=== PATIENT | female | born 1995 | race Caucasian/White ===

== ENCOUNTER 2024-03-29 09:30 | Observation (INO) ==
[2024-03-29] MEDS: NOZIN NASAL SANITIZER TP ONE (07:40)
[2024-03-29] MEDS: LR 1,000 ML IV 1,000 ML IV ONE (07:45)
[2024-03-29 08:27] VITALS: BMI 51.7
[2024-03-29] MEDS: NS 100 ML IV 100 ML ONE (09:47)
[2024-03-29] MEDS: ANCEF VIAL 1 GRAM ONE (09:47)
[2024-03-29] MEDS: ZOFRAN INJ 4 MG VIAL ONE (09:51)
[2024-03-29] MEDS: OFIRMEV IV 1000 MG VIAL 1,000 MG/100 ML VIAL IV ONE (09:51)
[2024-03-29] MEDS: VERSED ONE (09:51)
[2024-03-29] MEDS: DIPRIVAN VIAL 20 ML ONE (09:51)
[2024-03-29] MEDS: FENTANYL VIAL INJ 100 mcg ONE (09:51)
[2024-03-29] MEDS: DECADRON INJ ONE (09:51)
[2024-03-29] MEDS ORDERED: KETAMINE HCL ONE (09:51)
[2024-03-29] MEDS: PEPCID 20 MG VIAL ONE (09:51)
[2024-03-29] MEDS ORDERED: XYLOCAINE 2 % (PLAIN) ONE (09:51)
[2024-03-29] MEDS ORDERED: ULTANE GAS IN ONE (09:51)
[2024-03-29] MEDS: REGLAN INJ 10 MG VIAL ONE (09:57)
[2024-03-29] MEDS: TORADOL 30 MG VIAL ONE (09:57)
[2024-03-29] MEDS: MARCAINE 0.25% INJ ONE (10:17)
[2024-03-29] MEDS: EPHEDRINE SULFATE INJ ONE (10:43)
[2024-03-29] MEDS: NEO-SYNEPHRINE INJ ONE (10:51)
[2024-03-29] MEDS: VANCOMYCIN HCL ONE (11:00)
[2024-03-29] MEDS: TOBRAMYCIN SULFATE ONE (11:00)
[2024-03-29] MEDS: DILAUDID INJ ONE (11:12)
[2024-03-29] MEDS ORDERED: DILAUDID INJ IVP PRN (11:22)
[2024-03-29] MEDS ORDERED: BARHEMSYS INJ IVP PRN (11:22)
[2024-03-29] MEDS ORDERED: BENADRYL INJ 50 MG VIAL IVP PRN (11:22)
[2024-03-29] MEDS ORDERED: TYLENOL 325 MG TAB PO PRN (12:19)
[2024-03-29] MEDS ORDERED: ZOFRAN INJ 4 MG VIAL ONE (12:44)
[2024-03-29] MEDS: ZOFRAN INJ 4 MG VIAL IVP PRN ×3 (12:47→22:10)
[2024-03-29] MEDS ORDERED: NS IRRIGATION* 500 ML IR ONE (13:22)
[2024-03-29] MEDS: PERCOCET TAB 5/325 MG PO PRN (14:24)
[2024-03-29] MEDS: NS 1,000 ML IV 1,000 ML IV SCH (15:02)
[2024-03-29] MEDS: COLACE CAP 100 MG PO SCH (21:52)
[2024-03-30] MEDS: DILAUDID INJ IVP PRN (00:17)
[2024-03-30 05:08] LABS: BLOOD UREA NITROGEN 11 mg/dL (7-18); CALCIUM 8.3 mg/dL (8.5-10.1); CARBON DIOXIDE 26.8 mmol/L (21-32); CHLORIDE 98 mmol/L (98-107); COR NA(FOR HYPERGLY) 134 mmol/L (136-145); CREATININE 0.97 mg/dL (0.55-1.02); GLUCOSE 118 mg/dL (65-99); POTASSIUM 3.6 mmol/L (3.5-5.1); SODIUM 134 mmol/L (136-145); eGFR NON BLACK RACES > 60 (>60)
[2024-03-30] MEDS ORDERED: CONSULT PHARMACY - POTASSIUM & MAGNESIUM XX SCH (07:00)
[2024-03-30] MEDS: LOVENOX INJ 40 MG SYR SC SCH (08:28)
[2024-03-30] MEDS: K-DUR TAB 20 MEQ PO SCH (08:29)
[2024-03-30 10:40] VITALS: RESP 21
[2024-03-30 11:27] VITALS: BP 115/56; PULSE 99; TEMP 97.8; O2SAT 100
--- NOTE | 2024-03-30 13:16 | NOTE.SOAP ---
Soap Note Note for Day of Date of Exam: 03/30/24 Subjective Data Subjective Data: Patient resting in bed, states pain well controlled. Objective Data Objective Data: Right Lower Extremity Exam: External fixator in place. CFT WNL to all digits. Surgical incision has sutures intact with no drainage or dehiscence. No signs or symptoms concerning for DVT, PE, or Compartment Syndrome. Assessment Assessment: 28 year old Female POD#1 talectomy, external fixator application with charcot right foot Plan Plan: - PWB to RLE with assistance device. - We will follow cultures and pathology report. - She is good for discharge from our standpoint. - Keep dressing clean and dry and intact.
--- NOTE | 2024-03-31 12:43 | W.DIS.FURT ---
Summary of Discharge Discharge Summary of Date Date of Exam: 03/30/24 Admission Date Date of Admission: 03/29/24 Admission Diagnosis Hospital Course: Pt is a 28 year old Female POD#1 talectomy, external fixator application with charcot right foot with External fixator in place. She is doing well this morning. She is cleared by podiatry to be discharged today. PWB to RLE with assistance device. She will follow with podiatry outpatient that will include cultures and pathology report. Keep dressing clean and dry and intact. Pt discharged in stable condition. Vital Signs: Vital Signs (72 hours) 03/29/24 07:38 03/29/24 09:57 03/29/24 11:12 Temperature 97.8 F Pulse Rate 111 H Pulse Rate [Brachial] Respiratory Rate 18 20 20 Blood Pressure 116/65 Blood Pressure [Left Arm] O2 Sat by Pulse Oximetry 99 Oxygen Delivery Method Room Air Oxygen Flow Rate FIO2% 03/29/24 12:21 03/29/24 12:36 03/29/24 12:41 Temperature 97 F L Pulse Rate 114 H 103 H 101 H Pulse Rate [Brachial] Respiratory Rate 16 17 18 Blood Pressure 96/55 103/51 105/53 Blood Pressure [Left Arm] O2 Sat by Pulse Oximetry 96 95 98 Oxygen Delivery Method Aerosol Face Tent Room Air Nasal Cannula Oxygen Flow Rate FIO2% 03/29/24 12:26 03/29/24 12:31 03/29/24 12:46 Temperature Pulse Rate 109 H 107 H 110 H Pulse Rate [Brachial] Respiratory Rate 16 16 18 Blood Pressure 94/50 114/53 98/47 Blood Pressure [Left Arm] O2 Sat by Pulse Oximetry 97 95 97 Oxygen Delivery Method Aerosol Face Tent Room Air Nasal Cannula Oxygen Flow Rate FIO2% 03/29/24 12:51 03/29/24 12:56 03/29/24 13:01 Temperature Pulse Rate 101 H 98 H 96 H Pulse Rate [Brachial] Respiratory Rate 18 18 18 Blood Pressure 101/51 103/55 109/54 Blood Pressure [Left Arm] O2 Sat by Pulse Oximetry 97 97 98 Oxygen Delivery Method Nasal Cannula Nasal Cannula Nasal Cannula Oxygen Flow Rate FIO2% 03/29/24 14:24 03/29/24 16:30 03/29/24 15:24 Temperature Pulse Rate Pulse Rate [Brachial] Respiratory Rate 18 18 Blood Pressure Blood Pressure [Left Arm] O2 Sat by Pulse Oximetry Oxygen Delivery Method Nasal Cannula Oxygen Flow Rate 3 FIO2% 32 03/29/24 16:00 03/29/24 13:17 03/29/24 13:31 Temperature 97.8 F 86.1 F L 86.5 F L Pulse Rate Pulse Rate [Brachial] 104 H 100 H 105 H Respiratory Rate 18 20 20 Blood Pressure Blood Pressure [Left Arm] 100/52 101/58 99/47 O2 Sat by Pulse Oximetry 100 99 98 Oxygen Delivery Method Oxygen Flow Rate FIO2% 03/29/24 13:52 03/29/24 14:11 03/29/24 14:16 Temperature 97.4 F L 97.8 F Pulse Rate Pulse Rate [Brachial] 94 H 87 88 Respiratory Rate 18 20 18 Blood Pressure Blood Pressure [Left Arm] 111/67 110/64 112/62 O2 Sat by Pulse Oximetry 99 99 Oxygen Delivery Method Oxygen Flow Rate FIO2% 03/29/24 15:16 03/29/24 16:16 03/29/24 17:16 Temperature 96.4 F L 98.6 F 98.8 F Pulse Rate Pulse Rate [Brachial] 87 95 H 100 H Respiratory Rate 18 19 18 Blood Pressure Blood Pressure [Left Arm] 106/51 104/58 105/64 O2 Sat by Pulse Oximetry 100 100 100 Oxygen Delivery Method Oxygen Flow Rate FIO2% 03/29/24 18:16 03/29/24 20:00 03/29/24 21:53 Temperature 97.8 F 97.0 F L Pulse Rate Pulse Rate [Brachial] 104 H 101 H Respiratory Rate 18 20 20 Blood Pressure Blood Pressure [Left Arm] 100/52 105/53 O2 Sat by Pulse Oximetry 100 100 Oxygen Delivery Method Oxygen Flow Rate FIO2% 03/30/24 00:17 03/29/24 19:00 03/29/24 22:53 Temperature Pulse Rate Pulse Rate [Brachial] Respiratory Rate 21 18 Blood Pressure Blood Pressure [Left Arm] O2 Sat by Pulse Oximetry Oxygen Delivery Method Room Air Oxygen Flow Rate FIO2% 03/30/24 00:00 03/30/24 00:47 03/30/24 04:00 Temperature 97.6 F 97.9 F Pulse Rate Pulse Rate [Brachial] 98 H 97 H Respiratory Rate 20 18 20 Blood Pressure Blood Pressure [Left Arm] 116/63 115/59 O2 Sat by Pulse Oximetry 99 99 Oxygen Delivery Method Oxygen Flow Rate FIO2% 03/29/24 20:05 03/30/24 08:28 03/30/24 08:00 Temperature 98.0 F Pulse Rate Pulse Rate [Brachial] 82 Respiratory Rate 20 21 Blood Pressure Blood Pressure [Left Arm] 117/56 O2 Sat by Pulse Oximetry 97 Oxygen Delivery Method Room Air Room Air Oxygen Flow Rate FIO2% 03/30/24 08:37 03/30/24 07:00 03/30/24 09:28 Temperature Pulse Rate Pulse Rate [Brachial] Respiratory Rate 21 Blood Pressure Blood Pressure [Left Arm] O2 Sat by Pulse Oximetry Oxygen Delivery Method Room Air Room Air Oxygen Flow Rate FIO2% Labs: Laboratory Last Values Sodium 134 mmol/L (136-145) L 03/30/24 04:37 Corrected Sodium 134 mmol/L (136-145) L 03/30/24 04:37 Potassium 3.6 mmol/L (3.5-5.1) 03/30/24 04:37 Chloride 98 mmol/L (98-107) 03/30/24 04:37 Carbon Dioxide 26.8 mmol/L (21-32) 03/30/24 04:37 BUN 11 mg/dL (7-18) 03/30/24 04:37 Creatinine 0.97 mg/dL (0.55-1.02) 03/30/24 04:37 Est GFR (MDRD) Af Amer > 60 (>60) 03/30/24 04:37 Est GFR (MDRD) Non-Af > 60 (>60) 03/30/24 04:37 Glucose 118 mg/dL (65-99) H 03/30/24 04:37 Calcium 8.3 mg/dL (8.5-10.1) L 03/30/24 04:37 Reason For Visit: +APPLICATION OF EXTERNAL FIXATOR (R), TALECTOMY Discharge Date Discharge Date: 03/30/24 Discharge Diagnosis Plan of Treatment: Continue with present treatment and follow up plan. Pt is to keep follow up appointment as instructed and take medications as ordered. Discharge Medications Discharge Medications: No Known Drug Allergies Allergy (Verified 03/29/24 08:01) CONTINUE taking the following medications celecoxib 200 mg capsule 200 mg PO BID PRN pain 03/29/24 [History] lisinopril 20 mg-hydrochlorothiazide 12.5 mg tablet 1 tab PO QDAY blood pressure 03/29/24 [History] phentermine 37.5 mg tablet 37.5 mg PO QAM 03/29/24 [History] Discharge Plan Discharge Plan Hospital Course: Pt is a 28 year old Female POD#1 talectomy, external fixator application with charcot right foot with External fixator in place. She is doing well this morning. She is cleared by podiatry to be discharged today. PWB to E with assistance device. She will follow with podiatry outpatient that will include cultures and pathology report. Keep dressing clean and dry and intact. Pt discharged in stable condition. Patient Disposition: 01 HOME, SELF-CARE Condition: Stable Health Concerns: Post Hospitalization: new medications and changes needed to prevent readmission or further decline. Pt educated and given instructions on all concerns. Plan of Treatment: Continue with present treatment and follow up plan. Pt is to keep follow up appointment as instructed and take medications as ordered. Prescriptions: New oxycodone-acetaminophen [Percocet] 10-325 mg Tablet 1 tab PO Q4H MDD 3 PRNQty: 36 0RF Rx Instructions: PAIN enoxaparin [Lovenox] 40 mg/0.4 mL Syringe 40 mg SUBCUT QDAY Qty: 30 0RF ondansetron HCl 8 mg Tablet 8 mg PO Q4H PRNQty: 21 0RF No Action celecoxib 200 mg capsule 200 mg PO BID PRN (Reason: pain) lisinopril-hydrochlorothiazide 20-12.5 mg tablet 1 tab PO QDAY phentermine 37.5 mg tablet 37.5 mg PO QAM Orders to Discharge Patient Discharge Orders: Discharge (Routine); Ordered 03/30/24 Ordered By: Guru White Follow ups/Referrals Follow ups/Referrals: Ethan Spear [CONSULTING PHYSICIAN] - 1 WEEK (CALL AND MAKE FLU/[phone]) ,Misc [Primary Care Provider] - 1 WEEK Instructions Instructions: Fracture Treated With External Fixation, Pediatric Stand Alone Forms: Excuse From Work or School, Post Hospital Follow Up Care
== END 2024-03-30 12:40 | disposition home or self-care (01) ==
LOC: MED/SURG → EDUNIT# 09:30
PROVIDERS: ADMIT Obstetrics & Gynecology Obstetrics; ATTEND Obstetrics & Gynecology Obstetrics
PROC: APEXFIX (2024-03-29 09:45)
DX: M21.6X1 Other acquired deformities of right foot; M86.171 Other acute osteomyelitis, right ankle and foot; I10 Essential (primary) hypertension; Z16.12 Extended spectrum beta lactamase (ESBL) resistance; Z16.19 Resistance to other specified beta lactam antibiotics; L89.893 Pressure ulcer of other site, stage 3; Z16.11 Resistance to penicillins; G89.18 Other acute postprocedural pain; M24.571 Contracture, right ankle; Z16.29 Resistance to other single specified antibiotic; B96.5 Pseudomonas (aeruginosa) (mallei) (pseudomallei) as the cause of diseases classified elsewhere; B95.7 Other staphylococcus as the cause of diseases classified elsewhere

== ENCOUNTER 2024-05-10 09:19 | Observation (INO) ==
[2024-05-10] MEDS: NOZIN NASAL SANITIZER TP ONE (10:00)
[2024-05-10] MEDS: LR 1,000 ML IV 1,000 ML IV ONE ×2 (10:00→13:50)
[2024-05-10 10:18] LABS: BASOPHILS # (AUTO) 0.1 X10^3/uL (0.0-0.1); BASOPHILS % (AUTO) 0.5 % (0.2-1.0); EOSINOPHILS # (AUTO) 0.4 x10^3/uL (0.0-0.2); EOSINOPHILS % (AUTO) 2.8 % (0.9-2.9); HEMATOCRIT 35.9 % (36.0-47.0); HEMOGLOBIN 11.5 g/dL (12.0-16.0); LYMPHOCYTES % (AUTO) 12.9 % (21.0-51.0); MEAN CORPUSCULAR HEMOGLOBIN 25.2 pg (27.0-34.0); MEAN CORPUSCULAR HGB CONC 32.1 g/dL (33.0-35.0); MEAN CORPUSCULAR VOLUME 78.4 fL (80.0-100.0); MEAN PLATELET VOLUME 7.5 fL (7.4-11.0); MONOCYTES # (AUTO) 0.5 x10^3/uL (0.3-0.8); MONOCYTES % (AUTO) 3.4 % (0.0-13.0); NEUTROPHILS # (AUTO) 12.2 x10^3/uL (2.2-4.8); NEUTROPHILS % (AUTO) 80.4 % (42.0-75.0); PLATELET COUNT 444 X10^3/uL (150.0-450.0); RED BLOOD COUNT 4.58 X10^6/uL (3.5-5.4); RED CELL DISTRIBUTION WIDTH 15.4 % (11.6-16.5); WHITE BLOOD COUNT 15.2 X10^3/uL (3.6-10.0)
[2024-05-10 10:29] LABS: ALANINE AMINOTRANSFERASE 32 Units/L (12-78); ALBUMIN 2.9 g/dL (3.4-5.0); ALKALINE PHOSPHATASE 137 Units/L (46-116); ASPARTATE AMINO TRANSFERASE 14 Units/L (15-37); BLOOD UREA NITROGEN 10 mg/dL (7-18); CALCIUM 9.1 mg/dL (8.5-10.1); CARBON DIOXIDE 28.8 mmol/L (21-32); CHLORIDE 100 mmol/L (98-107); GLUCOSE 103 mg/dL (65-99); SERUM PREGNANCY TEST, QUAL NEGATIVE <10 mIU/mL; SODIUM 135 mmol/L (136-145); TOTAL PROTEIN 8.3 g/dL (6.4-8.2); eGFR NON BLACK RACES > 60 (>60)
[2024-05-10 10:46] VITALS: BMI 51.7
[2024-05-10] MEDS: OFIRMEV IV 1000 MG VIAL 1,000 MG/100 ML VIAL IV ONE (12:14)
[2024-05-10] MEDS: ZEMURON 100 MG VIAL ONE (12:14)
[2024-05-10] MEDS: ZOFRAN INJ 4 MG VIAL ONE (12:14)
[2024-05-10] MEDS: PEPCID 20 MG VIAL ONE (12:14)
[2024-05-10] MEDS: DIPRIVAN VIAL 20 ML ONE (12:14)
[2024-05-10] MEDS: VERSED ONE (12:16)
[2024-05-10] MEDS: FENTANYL VIAL INJ 100 mcg ONE (12:16)
[2024-05-10] MEDS: NS 100 ML IV 100 ML ONE (12:32)
[2024-05-10] MEDS: ANCEF VIAL 1 GRAM ONE (12:32)
[2024-05-10] MEDS ORDERED: XYLOCAINE 2 % (PLAIN) ONE (12:33)
[2024-05-10] MEDS ORDERED: KETAMINE HCL ONE (12:33)
[2024-05-10] MEDS ORDERED: ULTANE GAS IN ONE (12:33)
[2024-05-10] MEDS: BETADINE SOLN ONE (12:45)
[2024-05-10] MEDS: TORADOL 30 MG VIAL ONE (12:56)
[2024-05-10] MEDS: REGLAN INJ 10 MG VIAL ONE (12:56)
[2024-05-10] MEDS: MARCAINE 0.25% INJ ONE (13:02)
[2024-05-10] MEDS: NEO-SYNEPHRINE INJ ONE (13:16)
[2024-05-10] MEDS ORDERED: REGLAN INJ 10 MG VIAL IVP PRN (13:23)
[2024-05-10] MEDS ORDERED: ZOFRAN INJ 4 MG VIAL IVP PRN (13:23)
[2024-05-10] MEDS ORDERED: BARHEMSYS INJ IVP PRN (13:23)
[2024-05-10] MEDS ORDERED: BENADRYL INJ 50 MG VIAL IVP PRN (13:23)
[2024-05-10] MEDS: BRIDION ONE (14:03)
[2024-05-10] MEDS ORDERED: TYLENOL 325 MG TAB PO PRN (14:55)
[2024-05-10] MEDS: ZOFRAN INJ 4 MG VIAL IVP PRN ×2 (15:06→20:33)
[2024-05-10] MEDS: DILAUDID INJ IVP PRN ×2 (15:10→16:03)
[2024-05-10] MEDS: ANCEF VIAL 1 GRAM IVP SCH (15:27)
[2024-05-10] MEDS: NS 1,000 ML IV 1,000 ML IV SCH (15:57)
[2024-05-10] MEDS: PERCOCET TAB 5/325 MG PO PRN (19:08)
[2024-05-10] MEDS: COLACE CAP 100 MG PO SCH (20:02)
[2024-05-10] MEDS: NOZIN NASAL SANITIZER TP SCH (20:03)
[2024-05-11] MEDS ORDERED: MILK OF MAGNESIA PO PRN (00:11)
[2024-05-11 05:26] LABS: BLOOD UREA NITROGEN 9 mg/dL (7-18); CALCIUM 8.2 mg/dL (8.5-10.1); CARBON DIOXIDE 30.2 mmol/L (21-32); CHLORIDE 101 mmol/L (98-107); CREATININE 1.02 mg/dL (0.55-1.02); GLUCOSE 106 mg/dL (65-99); POTASSIUM 3.8 mmol/L (3.5-5.1); SODIUM 135 mmol/L (136-145); eGFR NON BLACK RACES > 60 (>60)
[2024-05-11 07:50] VITALS: BP 110/56; PULSE 100; TEMP 98; O2SAT 98
[2024-05-11] MEDS: LOVENOX INJ 40 MG SYR SC SCH (08:06)
[2024-05-11 08:11] VITALS: RESP 18
--- NOTE | 2024-05-11 08:26 | NOTE.SOAP ---
Soap Note Note for Day of Date of Exam: 05/11/24 Subjective Data Subjective Data: Patient is POD#1 Ex Fix Removal with hindfoot nail insertion to right foot. She denies any nasuea, vomiting, fevers, chills, shortness of breath, chest pain, or calf pain. Objective Data Objective Data: Right Lower Extremity: Dressing was removed. Incisions are healing well. No sanguineous drainage upon incisions. CFT WNL to all digits. No calf or thigh pain. Under dressing was saturated rewrapped this with sterile 4x4s, ABDs, Webroll, Posterior splint, and MANUELA. No signs or symptoms concerning for DVT or PE. Assessment Assessment: POD#1 Ex Fix Removal with Insertion of Hindfoot Nail Plan Plan: - NWB to RLE. - Finished Ancef dosage. - Rx for Percocet, Lovenox, and Zofran in chart. - Follow-up in chart. - Has knee scooter at home. - Will follow-up Dr. Spear next week. - Okay for discharge from Podiatry standpoint.
== END 2024-05-11 10:35 | disposition home or self-care (01) ==
LOC: SURG1 09:19 → MED/SURG 09:19
PROVIDERS: ADMIT Obstetrics & Gynecology Obstetrics; ATTEND Obstetrics & Gynecology Obstetrics
DX: G89.18 Other acute postprocedural pain; M14.671 Charcot's joint, right ankle and foot